=== PATIENT | female | born 1965 | race Caucasian/White ===

== ENCOUNTER 2023-05-28 08:49 | Outpatient (RCR) | payer MEDICAID, SELFPAY ==
[2023-05-28 09:13] VITALS: BP 131/75; PULSE 106; RESP 18; TEMP 36.7; BMI 47.7
--- NOTE | 2023-05-28 12:55 | PCM.WC.HP ---
History of Present Illness Date of Service: 05/28/23 Chief Complaint: Left groin mass/abscess History of Wound: 57 year old female presents with a left groin mass. She is a poor historian. She states that she first noticed the left groin mass a few weeks ago. She was treated with Doxycycline. She his having minimal pain in this area. She sometimes has a small amount of drainage from this area. She is diabetic. She lives at [facility]. She states that she has cancer in her left lymph nodes. She does not know the origin of the cancer. She states she is scheduled for a scan this week. She states that her PCP is Dr. Rodriguez (at [facility]). Her RANGE EXAMINER/ONC is Dr. Carlos Dumont at [facility]. I left a message at [facility] to try to obtain more information. Today the patient denies fever, chills, nausea or vomiting. 05/29/23 [facility] and spoke to a nurse, Nikki Orozco, and she states that Asha is scheduled for a PET scan on 05/30/23 at [facility]. She sees Dr. Conte as her Oncologist. She states that the patient had a hysterectomy in the past for a mass. I spoke to Rocio at Dr. Carlos Dumont office (RANGE EXAMINER/Oncology) at [facility]. She states that Asha was diagnosed with Uterine cancer and had a hysterectomy on 04/12/21. Pathology showed 1A, she required no chemo and her lymph nodes were negative at that time. She states that the patient's oncologist is Dr. Galindo at [facility] in [place]. She states that in a recent note from Dr. Dumont it was noted that Asha had a tennis ball size mass in her left groin, which is suspected to be a re-occurrence of her cancer. Progress of Wound: Large left groin abscess/mass. It is firm, not painful to palpation. Overlying skin is purple/pink in color. No drainage at this time. PFSH Home Medications acetaminophen 500 mg tablet (Acetaminophen Extra Strength) 1,000 mg PO TID PRN PRN fever or pain 05/28/23 [History Last Taken Unknown] albuterol sulfate 90 mcg/actuation breath activated powder inhaler 2 inh inhalation Q2H PRN shortness of breath or wheezing 05/28/23 [History Last Taken Unknown] atorvastatin 20 mg tablet 20 mg PO DAILY 05/28/23 [History Last Taken Unknown] bisacodyl 10 mg rectal suppository (Dulcolax (bisacodyl)) 10 mg OH DAILY PRN constipation 05/28/23 [History Last Taken Unknown] calcium carbonate (Tums Extra Strength Smoothies) 600 mg PO Q6H PRN PRN dyspepsia 05/28/23 [History Last Taken Unknown] cholecalciferol (vitamin D3) 50 mcg (2,000 unit) tablet 50 mcg PO DAILY 05/28/23 [History Last Taken Unknown] dextromethorphan-guaifenesin 10 mg-100 mg/5 mL oral syrup 10 ml PO Q4H PRN cough 05/28/23 [History Last Taken Unknown] docusate sodium 100 mg capsule (Colace) 100 mg PO BID 05/28/23 [History Last Taken Unknown] doxycycline hyclate 100 mg capsule 100 mg PO BID 05/28/23 [History Last Taken Unknown] dulaglutide 4.5 mg/0.5 mL subcutaneous pen injector (Trulicity) 4.5 mg subcut QWEEK 05/28/23 [History Last Taken Unknown] fluoride (sodium) 1.1 % dental cream (Denta 5000 Plus) 1 applic dental BID 05/28/23 [History Last Taken Unknown] insulin lispro 100 unit/mL subcutaneous pen (Humalog KwikPen (U-100) Insulin) 1 sliding scale dose subcut TID 05/28/23 [History Last Taken Unknown] loperamide 2 mg capsule (Anti-Diarrheal (loperamide)) 2 mg PO Q4H PRN loose stool 05/28/23 [History Last Taken Unknown] melatonin 5 mg capsule 5 mg PO QHS 05/28/23 [History Last Taken Unknown] metformin 1,000 mg tablet 1,000 mg PO BID 05/28/23 [History Last Taken Unknown] methimazole 5 mg tablet 5 mg PO DAILY 05/28/23 [History Last Taken Unknown] midodrine 10 mg tablet 10 mg PO TID 05/28/23 [History Last Taken Unknown] omeprazole 20 mg capsule,delayed release 20 mg PO DAILY 05/28/23 [History Last Taken Unknown] ondansetron HCl 4 mg tablet 4 mg PO Q6H PRN nausea and vomiting 05/28/23 [History Last Taken Unknown] polyethylene glycol 3350 17 gram/dose oral powder (Miralax) 17 g PO DAILY PRN constipation 05/28/23 [History Last Taken Unknown] rivaroxaban 20 mg tablet (Xarelto) 20 mg PO DAILY 05/28/23 [History Last Taken Unknown] sucralfate 1 gram tablet 1 g PO TID 05/28/23 [History Last Taken Unknown] Allergy/AdvReac Type Severity Reaction Status Date / Time Penicillins Allergy Rash Verified 05/28/23 09:13 Sulfa (Sulfonamide Allergy Rash Verified 05/28/23 09:13 Antibiotics) unable to obtain Surgical History H/O: hysterectomy Social History Smoking Status: Former smoker ROS Constitutional Constitutional: Reports weakness; Denies chills or fever(s) Eyes Eyes: Reports none ENT HEENT: Reports none Cardiovascular Cardiovascular: Denies chest pain or dyspnea Respiratory/Chest Respiratory/Chest: Denies cough or dyspnea Gastrointestinal Gastrointestinal: Denies diarrhea, nausea or vomiting Musculoskeletal Musculoskeletal: Reports muscle weakness and myalgias Integumentary Integumentary: Reports other Details: left groin mass Neurologic Neurologic: Reports dizziness Psychiatric Psychiatric: Reports cognitive impairment Vital Signs Vital Signs Vital Signs: 05/28/23 09:13 Temperature 98.0 F Temperature Source Temporal Pulse Rate 106 H Respiratory Rate 18 Blood Pressure 131/75 H Blood Pressure Mean 93 Blood Pressure Source Monitor Blood Pressure Position Sitting Blood Pressure Location Left Arm Oxygen Delivery Method Room Air Weight Weight: 286 lb 9.615 oz Body Mass Index (BMI) 47.7 Physical Exam Const alert, no apparent distress and average body habitus General Appearance: cooperative HEENT normocephalic Head and Scalp: atraumatic Eyes General Eye: normal appearance of both eyes Neck full ROM Lymph Lymphatic Narrative: Left groin mass Resp normal respiratory effort, normal air movement and clear to auscultation bilaterally Effort and Inspection: able to speak in complete sentences Cardio regular rate and regular rhythm GI soft to palpation and non-tender Back/Spine normal ROM Extremity full ROM and normal capillary refill Skin Skin Narrative: Left groin mass/abscess. It is 8 x 11 cm. Firm. Not overly painful to palpation. No drainage present at this time. Overlying skin is purple/pink in color, thin in appearance. No increased warmth to touch. Neuro moves all extremities Neuro Narrative: Alert and oriented. Sensorium / Orientation: awake Psych cooperative and affect normal Psych Narrative: Unable to determine cognition. She seems appropriate, but unable to answer health history questions or explain current health issues. Debridement Note Debridement Note No debridement was completed: No debridement was completed today Post-Debridement Measurements and Additional Note: Post-Debridement Measurements/Treatment - Nurse 1 - General Ulcer Assessment Start: 05/28/23 09:07 Freq: Status: Active Protocol: POLO.LOWEXT Activity Type Activity Date Activity User E-sign Co-sign Detail Recorded Client Recorded Date Recorded By Document 05/28/23 09:13 KW Desktop 05/28/23 09:20 KW 05/28/23 09:13 - Today's Visit Information Type of service Initial Visit Arrival Mode Wheelchair Accompanied by long term transport/recreation program coordinator Patient Identification Verified (Name & Yes ) Finger Stick Blood Sugar(mg/dl) (if 212 indicated): Blood Sugar Stated by Patient Height and Weight Height 5 ft 5 in Weight 286 lb 9.615 oz Weight in Pounds 286.6 lbs Weight Measurement Method Estimated by Patient Body Mass Index (BMI) 47.7 BMI Classification Obese BSA - Kinjal 2.30 Vital Signs Temperature (97.8 F-99.1 F) 98.0 F Temperature Source Temporal Pulse Rate (60-100) 106 H Pulse Location Monitor Respiratory Rate (12-18) 18 Respiratory rate source Observation Oxygen Delivery Method Room Air Blood Pressure (90/60-120/80) 131/75 H Blood Pressure Mean 93 Source Monitor Position Sitting Blood Pressure Location Left Arm History Since Last Visit- (Skip if this is Patient's initial visit) Left Footwear Regular Shoe Right Footwear Regular Shoe Pain Scale: 0-10 Numeric Is Patient Pain Free? Yes Communication Assessment Preferred language [place] Environmental Services Aide Required No Able to Read Yes Able to Write Yes Communication Tools None Caregiver Communication Skills No Impairment Impairment Right Hearing Abillity Normal Left Hearing Abillity Normal Visual Assistive Devices Glasses Teaching Assessment Preferences Verbal,Written, Demonstration Barriers to Learning None Readiness To Learn Excellent Willingness to Engage in Self Management High Activies Readiness to Engage in Self Management High Activities Anxiety Level Calm Cooperation Cooperative Perception Coherent Interest in Health Problem Asks Questions Education Importance Acknowledges Need Does Patient Smoke tobacco or other Yes substances Smoking Status Former smoker Is Patient Diabetic Yes WC - Nurse 1 - General Ulcer Measurement Start: 05/28/23 09:07 Freq: Status: Active Protocol: Activity Type Activity Date Activity User E-sign Co-sign Detail Recorded Client Recorded Date Recorded By Document 05/28/23 09:13 KW Desktop 05/28/23 09:20 KW 05/28/23 09:13 Wound Center Nurse 1 #1 LT LOWER ABD/abscess -Current Size (cm) - Length 0.1 -Current Size (cm) - Width 0.1 -Current Size (cm) - Depth 0.1 -Total Square Cm 0.01 -Date of Last Picture (Recall this 05/28/23 field) -Photo Taken Yes -Exudate Amt Medium -Exudate Type Serosanguineous -Texture (Juhi-wound Skin Appearance) Assessed -Moisture (Juhi-wound Skin Appearance) Assessed -Color (Juhi-wound Skin Appearance) Assessed, Hemosiderin Staining -Temperature (Juhi-wound Skin No Abnormality Appearance) (Pt Warm) -Ulcer Cleansing Rinsed/ Irrigated with Saline -Wound Comment(s) NO LIDOCAINE WC - Nurse 2 - General Ulcer CM Notes Start: 05/28/23 09:07 Freq: Status: Active Protocol: Activity Type Activity Date Activity User E-sign Co-sign Detail Recorded Client Recorded Date Recorded By Document 05/28/23 09:34 ALCOHOOT 05/28/23 09:37 05/28/23 09:34 Wound Center Nurse 2 -Correct Patient No -Correct Side, Site, Position No -Correct Procedure No -Procedure Performed No -Post Debridement (cm) - Length 8 -Post Debridement (cm) - Width 10 -Post Debridement (cm) - Depth 0 -Total Square (Post) (cm) 80 -Area of Debridement (cm) - Length 8 -Area of Debridement (cm) - Width 10 -Total Square (Area) (cm) 80 -Wound/Ulcer Outcome Not Healed -Bleeding Controlled with NA Pain Scale: 0-10 Numeric Is Patient Pain Free? Yes POLO - Nurse 3 - General Ulcer D/C NN Start: 05/28/23 09:07 Freq: Status: Active Protocol: Activity Type Activity Date Activity User E-sign Co-sign Detail Recorded Client Recorded Date Recorded By Document 05/28/23 09:46 JF Laptop 05/28/23 09:47 JF 05/28/23 09:46 Wound Care Center Nurse 3 #1 LT LOWER ABD/abscess -Primary Dressing Covered/Secured with Dry Gauze, Secured with Tape Pain Scale: 0-10 Numeric Is Patient Pain Free? Yes WC - Visit Discharge Discharge Condition Stable Ambulatory Status Wheelchair Transportation Private Auto Accompanied by nursing assistants teacher from [employer] Medication Reconcilliation completed & Yes provided to patient/care provider Clinical Summary of Care Provided Yes Charges/Coding Visit Charges Inpatient E&M: 23119 Init Hosp L3 Assessment/Plan Assessment/Plan (1) Left groin mass: CODE(S): R19.09 - Other intra-abdominal and pelvic swelling, mass and lump (2) Diabetes: CODE(S): E11.9 - Type 2 diabetes mellitus without complications (3) Poor historian: CODE(S): Z78.9 - Other specified health status PLAN: Plan Patient evaluated at the wound healing center today. She states that she has cancer in her left lymph node where the mass/abscess is located. I instructed the patient that I would not be able to remove this mass in her left groin because it could be related to her positive lymph nodes. If she would like to have it removed, she should see her oncologist or a surgeon for treatment options. Through contacting her other providers, she is scheduled for a PET scan on 05/30/23. She does have a re occurrence of uterine cancer. I have [facility] a nurse[facility]rozco[facility] at [facility] to gather information. I then spoke to Rocio at Dr. Siddiqui's office who was able to tell me that Asha has a hx of uterine cancer and now has an enlarged left groin lymph node the size of a tennis ball. Patient may follow up at the wound healing center, if she has a wound in the future. Over 45 minutes spent making phone calls researching patient's history to make sure she is receiving proper care.
== END 2023-05-29 13:34 | disposition home or self-care (01) ==
LOC: WC 08:49
PROVIDERS: Visit Provider Nurse Practitioner Family
DX: R19.00 Intra-abdominal and pelvic swelling, mass and lump, unspecified site (principal); E11.9 Type 2 diabetes mellitus without complications; Z79.4 Long term (current) use of insulin; Z79.01 Long term (current) use of anticoagulants; E66.9 Obesity, unspecified; Z87.891 Personal history of nicotine dependence; R59.0 Localized enlarged lymph nodes; Z79.899 Other long term (current) drug therapy; Z79.84 Long term (current) use of oral hypoglycemic drugs
CPT/HCPCS: G0463; 99204; 99214